=== PATIENT | male | born 1955 | race Caucasian/White ===

== ENCOUNTER 2017-06-22 14:36 | Emergency (ER) | payer MEDICAID ==
[~2017-06-22] VITALS: Ht 172.7 cm; Wt 81.6 kg
[~2017-06-22 14:36] MED LIST: BUPR150T42 PO; CYCL1TAB18 PO; DIVA500T59 PO; FURO40TA4 PO; METH750T3 PO; POTA10TA75 PO; RISP1TAB63 PO; TEMA30CA5 PO
[2017-06-22 14:45] VITALS: BP 141/85
== END 2017-06-22 16:18 | disposition home or self-care (01) ==
LOC: EDBD 14:36 → ER 14:36
DX: S09.90XA Unspecified injury of head, initial encounter (principal); Z79.899 Other long term (current) drug therapy; W22.8XXA Striking against or struck by other objects, initial encounter; Y93.89 Activity, other specified; Y99.8 Other external cause status; Y92.89 Other specified places as the place of occurrence of the external cause
CPT/HCPCS: 70450; 72125

== ENCOUNTER 2017-07-28 04:51 | Emergency (ER) | payer MEDICAID ==
[~2017-07-28] VITALS: Ht 182.9 cm; Wt 83.9 kg
[2017-07-28 05:20] VITALS: BP 105/59
== END 2017-07-28 05:45 | disposition home or self-care (01) ==
LOC: EDBD 04:51 → ER 04:52
DX: I10 Essential (primary) hypertension (principal); F20.9 Schizophrenia, unspecified; Z01.89 Encounter for other specified special examinations; Z79.899 Other long term (current) drug therapy